=== PATIENT | male | born 1975 | race Caucasian/White ===

== ENCOUNTER 2020-08-23 23:36 | Emergency (ER) | payer OTHER ==
[2020-08-24] MEDS ORDERED: PREDNISONE 20MG20 MG PO (01:50)
[2020-08-24] MEDS ORDERED: VALTREX1000 MG PO (01:50)
[2020-09-19] MEDS ORDERED: AMOXICILLIN500 MG PO (15:28)
[2020-09-19] MEDS ORDERED: PHENERGAN25 M1 PO (15:29)
== END 2020-08-24 02:00 | disposition home or self-care (01) ==
LOC: FER 23:36
DX: G51.0 Bell's palsy (principal); I25.10 Atherosclerotic heart disease of native coronary artery without angina pectoris; F17.210 Nicotine dependence, cigarettes, uncomplicated; Z95.5 Presence of coronary angioplasty implant and graft
CPT/HCPCS: 70450; J1040; J7512

== ENCOUNTER → 2020-09-26 | Day surgery (SDC) | payer OTHER ==
[~2020-09-26] VITALS: Ht 188 cm; Wt 119.3 kg
[~2020-09-26] MED LIST: AMOXICILLIN500 MG PO; PHENERGAN25 M1 PO; PREDNISONE 20MG20 MG PO; VALTREX1000 MG PO
[2020-09-26 12:42] LABS: BASOPHIL 0.9 % (0-2); EOSINOPHIL 2.5 % (0-5); HCT 46.6 % (42.0-52.0); HGB 15.7 g/dl (13.2-18.0); LYMPHOCYTE 33.6 % (15-48); MCH 30.1 pg (25.0-31.0); MCHC 33.7 g/dL (32.0-36.0); MCV 89.4 fL (78.0-100.0); MPV 10.8 fL (6.0-9.5); NEUTROPHIL 56.4 % (41-80); NRBC 0; PLT 253 K/uL (150-400); RBC 5.21 M/uL (4.70-6.00); RDW 13.9 % (11.5-14.0); WBC 10.1 K/uL (4.0-10.5)
[2020-09-26 13:02] LABS: INR 0.97 (0.9-1.2); PROTHROMBIN TIME 12.3 SECONDS (11.8-13.4); PTT 24.6 SECONDS (24.4-34.7)
== END | disposition home or self-care (01) ==
LOC: FAS 11:31
PROVIDERS: Oral & Maxillofacial Surgery
DX: K02.9 Dental caries, unspecified (principal); K04.7 Periapical abscess without sinus; F17.210 Nicotine dependence, cigarettes, uncomplicated; I25.2 Old myocardial infarction; R94.31 Abnormal electrocardiogram [ECG] [EKG]; R05 Cough; I25.10 Atherosclerotic heart disease of native coronary artery without angina pectoris
CPT/HCPCS: D7140; D7210; 36415; 71045; 85025; 85610; 85730; 93005; J1100; J1170; J2250; J2704; J3010; J7120